=== PATIENT | male | born 1980 | race Two or more races ===

== ENCOUNTER 2017-05-11 16:12 | Emergency (ER) | payer OTHER ==
[2017-05-11 16:25] VITALS: BP 145/93; PULSE 87; TEMP 97.8; BMI 32.5
--- NOTE | 2017-05-11 16:26 | PDOC ---
Rapid Medical Evaluation Chief Complaint: Injury Time Seen by Provider: 05/11/17 16:20 Medical Evaluation: Allergies Allergy/AdvReac Type Severity Reaction Status Date / Time No Known Allergies Allergy Verified 02/18/15 08:59 05/11/17 16:21 The patient presents with a chief complaint of: [Was hit on the head with a piece of sheet rock, that fell 16 feet. It was a 5 inch thick sheet rock. Was leaning on the floor working on his hands and knees at the time. + dizziness, No LOC, NO vomiting, left occipital and left pariental pain, erythema and edema noted. ] I have performed a brief in-person evaluation of this patient. Pertinent physical exam findings: vss, [erythema and edema noted to the scalp left parietal and occipital area. ] I have ordered the following: [Head CT, C-spine CT] The patient will proceed to the ED for further evaluation. Discharge Disposition - Diagnosis Head injury - Referrals - Patient Instructions - Post Discharge Activity
--- NOTE | 2017-05-11 16:42 | PDOC ---
Attending Attestation - HPI HPI: 05/11/17 18:05 The patient is a 37-year-old male with a significant past medical history of diabetes (on Metformin), who presents to the emergency department with headache and neck pain. 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 He complains of pain at the middle of his neck that radiates to the left lateral neck, and a bump on his head. He states he was able to ambulate afterwards. He denies any loss of consciousness, dizziness, visual changes, or change in sensation or strength. The patient denies chest pain or shortness of breath. The patient denies fever, chills, nausea, vomit, diarrhea, or urinary changes. - Physicial Exam PE: 05/11/17 18:07 Vitals: Triage Vital signs reviewed General Appearance: no acute distress, well nourished well developed, Head: (+) Minor hematoma to occiput. Normocephalic Eyes: Pupils equal reactive round, extraocular movement intact Neck: Supple;No Nuchal rigidity Cardiac: Regular rate and rhythm, no murmurs, no rubs, no gallops, Lungs: Clear to auscultation bilateral, good air movement bilaterally, Abdomen: Soft, nondistended, normal bowel sounds, nontender to palpation Extremities: Full range of motion to all extremities, no cyanosis, clubbing, or edema Skin: Warm and dry, no rashes, no petechiae Neuro: AOX3; Cranial Nerves 2-12 grossly c intact, Strength intact to all extremities, Sensation intact to all extremities, gait normal Psych: normal mood, normal affect - Medical Decision Making 05/11/17 18:[address] IMPRESSION: No acute intracranial hemorrhage, mass effects, or hydrocephalus. No calvarial fracture. CERVICAL SPINE CT W/O CONTRAST IMPRESSION: No evidence of acute fracture or subluxation in the cervical spine. <Mara Eng - Last Filed: 05/11/17 18:22> - Resident Resident Name: Jose Elias Lugo - ED Attending Attestation I have performed the following: I have examined & evaluated the patient, The case was reviewed & discussed with the resident, I agree w/resident's findings & plan, Exceptions are as noted - Medical Decision Making Minor head injury however given mechanism CT had neck ordered No acute findings Given the patient has mild headache head injury instruction rhythm discussed with patient including to return to ED for vomiting change in mental status He was instructed not to return to work until the signs and symptoms of his concussion have resolved he was also provided with neurology follow-up with signs and symptoms of concussion do not strict resolve completely within 1 week <Jono Stallings - Last Filed: 05/11/17 18:45>
[2017-05-11] MEDS ORDERED: ACETAMINOPHEN 325 MG TABLET (FP) PO ONE (16:50)
--- NOTE | 2017-05-11 16:50 | PDOC ---
History of Present Illness - General Chief Complaint: Injury Stated Complaint: HEADACHE Time Seen by Provider: 05/11/17 16:20 History Source: Patient Exam Limitations: No Limitations - History of Present Illness Initial Comments: 05/11/17 16:45 Patient is a 37M with history of NIDDM (on metformin) here today complaining of head and neck pain after sheet rock fell on him at work a few hours before presentation. Patient denies loss of consciousness, nausea, vomiting, memory loss. The sheet rock fell from about 15 feet. Patient states he has pain over the left side of his head and neck. He denies chest pain, shortness of breath. He states that he was able to walk immediately after the accident. Denies any focal weakness. Denies intoxication. Past History - Past Medical History Allergies/Adverse Reactions: Allergies Allergy/AdvReac Type Severity Reaction Status Date / Time No Known Allergies Allergy Verified 02/18/15 08:59 Home Medications: Ambulatory Orders NK [No Known Home Medication] 02/18/15 Anemia: No Asthma: No Cancer: No Cardiac Disorders: No CVA: No COPD: No CHF: No DVT: No Dementia: No Diabetes: No GI Disorders: No Disorders: No HTN: No Hypercholesterolemia: No Liver Disease: No Seizures: No Thyroid Disease: No - Immunization History Immunization Up to Date: Yes - Suicide/Smoking/Psychosocial Hx Smoking History: Never smoked Have you smoked in the past 12 months: No Information on smoking cessation initiated: No Hx Alcohol Use: No Drug/Substance Use Hx: No Substance Use Type: None Hx Substance Use Treatment: No Review of Systems - Review of Systems Comments:: 05/11/17 16:51 GENERAL/CONSTITUTIONAL: No fever or chills. No weakness. HEAD, EYES, EARS, NOSE AND THROAT: No change in vision. No sore throat. CARDIOVASCULAR: No chest pain or shortness of breath RESPIRATORY: No cough, wheezing, or hemoptysis. GASTROINTESTINAL: No nausea, vomiting, diarrhea or constipation. GENITOURINARY: No dysuria, frequency, or change in urination. MUSCULOSKELETAL: No joint or muscle swelling or pain. Positive for neck pain. No back pain. SKIN: No rash NEUROLOGIC: Positive for headache. Negative vertigo, loss of consciousness, or change in strength/sensation. HEMATOLOGIC/LYMPHATIC: No anemia, easy bleeding, or history of blood clots. ALLERGIC/IMMUNOLOGIC: No hives or skin allergy. *Physical Exam - Vital Signs Last Vital Signs Temp Pulse Resp BP Pulse Ox 97.8 F 87 16 145/93 96 05/11/17 16:18 05/11/17 16:18 05/11/17 16:18 05/11/17 16:18 05/11/17 16:18 - Physical Exam Comments: 05/11/17 16:52 GENERAL: Awake, alert, and fully oriented, in no acute distress HEAD: 2x2cm area of ecchymosis on posterior aspect of head, no garcia sign, no racoon eyes, small abrasion on lateral aspect of head EYES: PERRLA, EOMI, sclera anicteric, conjunctiva clear ENT: Auricles normal inspection, hearing grossly normal, nares patent, oropharynx clear without exudates. Moist mucosa NECK: Normal ROM, supple, positive for midline tenderness LUNGS: No distress, speaks full sentences, clear to auscultation bilaterally HEART: Regular rate and rhythm, normal S1 and S2, no murmurs, rubs or gallops, peripheral pulses normal and equal bilaterally. ABDOMEN: Soft, nontender, normoactive bowel sounds. No guarding, no rebound. No masses EXTREMITIES: Normal inspection, Normal range of motion, no edema. No clubbing or cyanosis. NEUROLOGICAL: Cranial nerves II through XII grossly intact. Normal speech, normal gait, no focal sensorimotor deficits SKIN: Warm, Dry, normal turgor, no rashes or lesions noted. Medical Decision Making - Medical Decision Making 05/11/17 16:53 37M with history of NIDDM here today with head and neck pain after sheet rock fell on patient. Vital signs stable and normal. Exam shows small amount of trauma to head, neuro exam normal, midline tenderness in neck. Will evaluate with cervical spine and head ct. Believe patient is low risk. No other complaints to indicate further trauma workup. 05/11/17 18:23 CT head shows no acute injury, CT neck cleared. Patient's pain has improved with tylenol. Neuro exam intact. Return precautions given. Will discharge. *DC/Admit/Observation/Transfer Diagnosis at time of Disposition: Head injury - Discharge Dispostion Disposition: HOME Condition at time of disposition: Good - Referrals - Patient Instructions Printed Discharge Instructions: DI for Closed Head Injury Additional Instructions: Please return if you have any new, worsening or concerning symptoms. Please follow up with your primary care physician in the next week. Print Language: MARTINIQUAIS - Post Discharge Activity Forms/Work/School Notes: Back to Work
[2017-05-11] MEDS ORDERED: ACETAMINOPHEN 325 MG TABLET (FP) ONE (16:59)
== END 2017-05-11 18:51 | disposition home or self-care (01) ==
LOC: JER 16:12
DX: S09.90XA Unspecified injury of head, initial encounter (principal); W20.8XXA Other cause of strike by thrown, projected or falling object, initial encounter; Y93.89 Activity, other specified; Y92.89 Other specified places as the place of occurrence of the external cause; Y99.0 Civilian activity done for income or pay
CPT/HCPCS: 70450-TC; 72125-TC; 99281-25

== ENCOUNTER 2017-05-25 10:53 | Emergency (ER) | payer OTHER ==
[2017-05-25 11:06] VITALS: BP 118/82; PULSE 104; TEMP 97.7; BMI 32.5
--- NOTE | 2017-05-25 11:18 | PDOC ---
Attending Attestation - HPI HPI: 05/25/17 11:36 37 M with a significant past medical history of NIDDM (on Metformin), who presents to the emergency department with left-sided chest pain since 7am today. Patient reports of sudden onset left upper quadrant pain this morning that began to radiate to his left chest. He states the pain is reproducible to touch. Patient also complains of diaphoresis at onset of pain this morning, and notes he has some difficulty breathing currently. Denies any family Hx of heart disease. He notes occasional ETOH use. Pt denies COATS and dizziness. Pt denies F/C, n/v/d. Pt denies dysuria, frequency, urgency and hematuria. <Mara Eng - Last Filed: 05/25/17 11:36> - Resident Resident Name: Nedra Gonzalez - ED Attending Attestation I have performed the following: I have examined & evaluated the patient, The case was reviewed & discussed with the resident, I agree w/resident's findings & plan, Exceptions are as noted - Physicial Exam PE: GENERAL: Awake, alert, and fully oriented. Appears uncomfortable. Appears ill. HEAD: No signs of trauma EYES: PERRLA, EOMI, sclera anicteric, conjunctiva clear ENT: Auricles normal inspection, hearing grossly normal, nares patent, oropharynx clear without exudates. Dry mucosa NECK: Normal ROM, supple, no lymphadenopathy, JVD, or masses LUNGS: Breath sounds equal, clear to auscultation bilaterally. No wheezes, and no crackles. +Tenderness to L lower rib margin. HEART: Regular rate and rhythm, normal S1 and S2, no murmurs, rubs or gallops ABDOMEN: Soft, diffusely tender, normoactive bowel sounds. No guarding, no rebound. No masses EXTREMITIES: Normal range of motion, no edema. No clubbing or cyanosis. No cords, erythema, or tenderness NEUROLOGICAL: Cranial nerves II through XII grossly intact. Normal speech. Motor and sensation intact. SKIN: Warm, Dry, normal turgor, no rashes or lesions noted. - Medical Decision Making 05/25/17 11:34 Patient appears uncomfortable, in obvious pain. Concern for poss dissection vs pancreatitis, SC. Will obtain labs, poss CTA. <Jaye Burks - Last Filed: 05/25/17 11:49>
[2017-05-25] MEDS ORDERED: ASPIRIN 81 MG CHEWABLE TABLETS PO ONE (11:22)
--- NOTE | 2017-05-25 11:22 | PDOC ---
History of Present Illness - General Chief Complaint: Chest Pain Stated Complaint: chest pain, vomiting, sob Time Seen by Provider: 05/25/17 11:15 - History of Present Illness Initial Comments: 37 year male with PMH of NIDDM presenting with sudden onset left upper quadrant abdominal pain that radiated to his left upper chest along with some respiratory difficulty.The pain was sudden onset 6/10 and high as a 9/10, non- pleuritic, non-exertional, but tender to touch across his upper left chest and left abdomen. Denies trauma to that area. Denies nausea, vomiting, diarrhea, constipation, syncope, or cough. 05/25/17 14:13 Past History - Past Medical History Allergies/Adverse Reactions: Allergies Allergy/AdvReac Type Severity Reaction Status Date / Time No Known Allergies Allergy Verified 05/25/17 11:06 Home Medications: Ambulatory Orders NK [No Known Home Medication] 02/18/15 Anemia: No Asthma: No Cancer: No Cardiac Disorders: No CVA: No COPD: No CHF: No DVT: No Dementia: No Diabetes: Yes GI Disorders: No Disorders: No HTN: No Hypercholesterolemia: No Liver Disease: No Seizures: No Thyroid Disease: No - Immunization History Immunization Up to Date: Yes - Suicide/Smoking/Psychosocial Hx Smoking History: Never smoked Have you smoked in the past 12 months: No Information on smoking cessation initiated: No Hx Alcohol Use: Yes (occasional) Drug/Substance Use Hx: No Substance Use Type: None Hx Substance Use Treatment: No Review of Systems - Review of Systems Constitutional: No: Chills, Diaphoresis, Fever HEENTM: No: Blurred Vision, Double Vision Respiratory: No: Cough, Orthopnea, Shortness of Breath Cardiac (ROS): Yes: Chest Pain. No: Irregular Heart Rate, Syncope ABD/GI: No: Nausea, Poor Appetite, Vomiting : No: Burning, Dysuria, Discharge Integumentary: No: Bruising *Physical Exam - Vital Signs Last Vital Signs Temp Pulse Resp BP Pulse Ox 97.7 F 104 H 18 118/82 98 05/25/17 11:04 05/25/17 11:04 05/25/17 11:04 05/25/17 11:04 05/25/17 11:04 - Physical Exam General Appearance: Yes: Nourished, Appropriately Dressed, Apparent Distress, Mild Distress HEENT: positive: EOMI, GIDEON, Normal ENT Inspection, Normal Voice Neck: positive: Trachea midline, Normal Thyroid, Supple. negative: Tender, Rigid Respiratory/Chest: positive: Chest Tender (Left sided chest tenderness to palpation along inferior portion of anterior thoracic ), Lungs Clear, Normal Breath Sounds. negative: Respiratory Distress, Accessory Muscle Use Cardiovascular: positive: Regular Rhythm, Regular Rate Gastrointestinal/Abdominal: positive: Normal Bowel Sounds, Tender (Left upper quadrant tenderness), Flat, Soft Musculoskeletal: positive: Normal Inspection, Decreased Range of Motion Extremity: positive: Normal Capillary Refill, Normal Inspection, Normal Range of Motion. negative: Tender Integumentary: positive: Normal Color, Dry, Warm Neurologic: positive: Fully Oriented, Alert, Normal Mood/Affect, Normal Response , Motor Strength / ED Treatment Course - LABORATORY CBC & Chemistry Diagram: 05/25/17 12:00 05/25/17 12:00 Medical Decision Making - Medical Decision Making Unclear etiology of abdominal but CTA chest/abd/pelvis negative for PE or other pathology. Blood glucose was elevated to 400s with a repeat of 280 and a lactate that downtrended from 3 to 1.6 with improved abdominal pain. Pain better with IV pain meds. and fluids. 05/25/17 17:15 EKGs originally demonstrated slightly elevated t waves in the anterior leads but troponins negative x2 and the EKG changes somehwat resolved by the end of his stay. Given his low risk factors, non specific EKG, negative troponins, and lack of typical [place] features, will discharge this patient with cards follow up with Dr. Freitas and return precautions. 05/25/17 18:47 *DC/Admit/Observation/Transfer Diagnosis at time of Disposition: Abdominal pain Qualifiers: Abdominal location: left upper quadrant Qualified Code(s): R10.12 - Left upper quadrant pain - Discharge Dispostion Disposition: HOME Condition at time of disposition: Improved Admit: No - Referrals Referrals: Micah Hagan MD [Staff Physician] - - Patient Instructions Printed Discharge Instructions: DI for Abdominal Pain-Adult Additional Instructions: Mcnally EKG fue un poco diferente que un EKG normal. Tu TC fue normal. Necesitamos que olman un seguimiento con el cardilogo en aliyah documento para asegurarse de que todo est wm con mcnally corazn. Utilice tylenol y advil para el dolor. Pelase regresa al departamento de emergencia si tiene sntomas nuevos o de empeoramiento. Print Language: SAMI - Post Discharge Activity
[2017-05-25] MEDS ORDERED: morphine CARPU-JECT 4 MG/1 ML DISP.SYRIN IVPUSH ONE (11:32)
[2017-05-25] MEDS ORDERED: SODIUM CHLORIDE 1,000 ML IV STA ×2 (11:32→13:15)
[2017-05-25] MEDS ORDERED: morphine SULFATE 4 MG/ML VIAL ONE (11:36)
[2017-05-25 12:09] LABS: BASO % 0.5 % (0-2.0); HEMATOCRIT 50.1 % (35.4-49); HEMOGLOBIN 17.1 GM/dL (11.7-16.9); LYMPH % 12.4 % (8-40); MCH 29.5 pg (25.7-33.7); MCHC 34.2 g/dl (32.0-35.9); MEAN CELL VOLUME 86.3 fl (80-96); MONO % 5.4 % (3.8-10.2); NEUT % 80.7 % (42.8-82.8); PLATELET COUNT 197 K/MM3 (134-434); RDW 13.4 % (11.9-15.9); WHITE BLOOD COUNT 6.1 K/mm3 (4.0-10.0)
[2017-05-25 12:35] LABS: ALBUMIN 4.1 g/dl (3.4-5.0); ANION GAP 15 (8-16); BILIRUBIN,TOTAL 1.4 mg/dL (0.2-1.0); BLOOD UREA NITROGEN 16 mg/dL (7-18); CALCIUM 9.6 mg/dL (8.5-10.1); CHLORIDE 96 mmol/L (98-107); CO2 25 mmol/L (21-32); CREATININE 1.2 mg/dL (0.7-1.3); LIPASE 197 U/L (73-393); POTASSIUM 4.2 mmol/L (3.5-5.1); SGOT/AST 21 U/L (15-37); SGPT/ALT 37 U/L (12-78); SODIUM 136 mmol/L (136-145); TOT PROT 7.4 g/dl (6.4-8.2)
[2017-05-25 12:36] LABS: N-TERMINAL BNP 149.01 pg/ml (5-125)
[2017-05-25 12:38] LABS: ALK PHOS 165 U/L (45-117)
[2017-05-25 12:40] LABS: INR 0.98 (0.82-1.09); PROTHROMBIN TIME (PATIENT) 11.1 SEC (9.98-11.88)
[2017-05-25 12:43] LABS: GLUCOSE,RANDOM 483 mg/dL (74-106)
[2017-05-25] MEDS ORDERED: INSULIN REGULAR HUMAN 100 UNITS/ML *VIAL SQ ONE (13:15)
[2017-05-25] MEDS ORDERED: INSULIN REGULAR HUMAN 100 UNITS/ML *VIAL ONE (13:23)
[2017-05-25] MEDS ORDERED: FUROSEMIDE 40 MG/4 ML INJECTABLE VIAL ONE (13:43)
--- NOTE | 2017-05-25 16:28 | EKG ---
Test Reason : Blood Pressure : / mmHG Vent. Rate : 096 BPM Atrial Rate : 096 BPM P-R Int : 152 ms QRS Dur : 098 ms QT Int : 338 ms P-R-T Axes : 068 090 063 degrees QTc Int : 427 ms NORMAL SINUS RHYTHM RIGHTWARD AXIS BORDERLINE ECG NO PREVIOUS ECGS AVAILABLE Confirmed by Hansel Barton ([id number]) on 05/25/2017 4:28:18 PM Referred By: Confirmed By:Hansel Barton
--- NOTE | 2017-05-25 16:29 | EKG ---
Test Reason : Blood Pressure : / mmHG Vent. Rate : 097 BPM Atrial Rate : 097 BPM P-R Int : 150 ms QRS Dur : 096 ms QT Int : 338 ms P-R-T Axes : 062 080 055 degrees QTc Int : 429 ms NORMAL SINUS RHYTHM EARLY REPOLARIZATION NORMAL ECG NO PREVIOUS ECGS AVAILABLE Confirmed by Hansel Barton ([id number]) on 05/25/2017 4:28:30 PM Referred By: Confirmed By:Hansel Barton
[2017-05-25 17:46] LABS: URINE APPEARANCE CLEAR; URINE BILIRUBIN NEGATIVE (NEGATIVE); URINE BLOOD NEGATIVE (NEGATIVE); URINE COLOR LTYELLOW; URINE GLUCOSE (UA) 3+ (NEGATIVE); URINE KETONE NEGATIVE (NEGATIVE); URINE LEUK ESTERASE NEGATIVE (NEGATIVE); URINE NITRITE NEGATIVE (NEGATIVE); URINE PROTEIN NEGATIVE (NEGATIVE); URINE UROBILINOGEN NEGATIVE mg/dL (0.2-1.0)
--- NOTE | 2017-05-26 09:56 | EKG ---
Test Reason : Blood Pressure : / mmHG Vent. Rate : 072 BPM Atrial Rate : 072 BPM P-R Int : 162 ms QRS Dur : 104 ms QT Int : 386 ms P-R-T Axes : 050 058 051 degrees QTc Int : 422 ms NORMAL SINUS RHYTHM ST ELEVATION, CONSIDER EARLY REPOLARIZATION, PERICARDITIS, OR INJURY ABNORMAL ECG WHEN COMPARED WITH ECG OF 25-MAY-2017 11:50, NO SIGNIFICANT CHANGE WAS FOUND Confirmed by TORITO CHOU, JONNATHAN ([id number]) on 05/26/2017 9:56:33 AM Referred By: Confirmed By:JONNATHAN UGARTE MD
== END 2017-05-25 19:10 | disposition home or self-care (01) ==
LOC: JER 10:53
PROC: 3E0337Z Introduction of Electrolytic and Water Balance Substance into Peripheral Vein, Percutaneous Approach (ICD-10-PCS; principal; 2017-05-25)
PROC: 3E033NZ Introduction of Analgesics, Hypnotics, Sedatives into Peripheral Vein, Percutaneous Approach (ICD-10-PCS; 2017-05-25)
PROC: 3E013VG Introduction of Insulin into Subcutaneous Tissue, Percutaneous Approach (ICD-10-PCS; 2017-05-25)
DX: R10.12 Left upper quadrant pain (principal); E11.9 Type 2 diabetes mellitus without complications; Z79.84 Long term (current) use of oral hypoglycemic drugs
CPT/HCPCS: 36415; 71045-TC-FY; 71275-TC; 74174-TC; 80053; 81003; 82550; 82962; 83605; 83690; 83735; 83880; 84484; 85025; 85379; 85610; 86850; 86900; 86901; 93005; 93010; 99284-25; J7030

== ENCOUNTER 2019-03-07 12:31 | Emergency (ER) | payer SELFPAY ==
[2019-03-07 12:43] VITALS: BP 117/70; PULSE 92; TEMP 98; BMI 29.6
[2019-03-07] MEDS ORDERED: ONDANSETRON *ODT* 4 MG TABLET SL ONE (13:29)
--- NOTE | 2019-03-07 13:31 | PDOC ---
History of Present Illness - General Chief Complaint: Cold Symptoms Stated Complaint: CHRONIC COUGHING Time Seen by Provider: 03/07/19 13:26 - History of Present Illness Initial Comments: 03/07/19 13:30 38-year-old male without comorbidities presents for flulike symptoms x1 day positive flu contact at home Past History - Past Medical History Allergies/Adverse Reactions: Allergies Allergy/AdvReac Type Severity Reaction Status Date / Time No Known Allergies Allergy Verified 05/25/17 11:06 Home Medications: Ambulatory Orders Oseltamivir Phosphate [Tamiflu] 75 mg PO BID #10 capsule 03/07/19 Anemia: No Asthma: No Cancer: No Cardiac Disorders: No CVA: No COPD: No CHF: No DVT: No Dementia: No Diabetes: Yes GI Disorders: No Disorders: No HTN: No Hypercholesterolemia: No Liver Disease: No Seizures: No Thyroid Disease: No - Immunization History Immunization Up to Date: Yes - Psycho Social/Smoking Cessation Hx Smoking History: Never smoked Have you smoked in the past 12 months: No Information on smoking cessation initiated: No Hx Alcohol Use: No Drug/Substance Use Hx: No Substance Use Type: None Hx Substance Use Treatment: No Review of Systems - Review of Systems Constitutional: Yes: Chills, Fever, Malaise, Night Sweats HEENTM: Yes: Nose Congestion Respiratory: Yes: Cough ABD/GI: Yes: Nausea, Vomiting *Physical Exam - Vital Signs Last Vital Signs Temp Pulse Resp BP Pulse Ox 98.0 F 92 H 18 117/70 98 03/07/19 12:40 03/07/19 12:40 03/07/19 12:40 03/07/19 12:40 03/07/19 12:40 - Physical Exam 03/07/19 13:30 GENERAL: The patient is awake, alert, and fully oriented, in no acute distress. HEAD: Normal with no signs of trauma. EYES: sclera anicteric, conjunctiva clear. ENT: Ears normal tympanic membranes normal oropharynx clear uvula midline NECK: Normal range of motion LUNGS: Breath sounds equal, clear to auscultation bilaterally. No wheezes, and no crackles. HEART: S1 and S2 without murmur, rub or gallop. ABDOMEN: Soft, nontender, normoactive bowel sounds. No guarding, no rebound. No masses. EXTREMITIES: Normal range of motion, no edema. No clubbing or cyanosis. No cords, erythema, or tenderness. NEUROLOGICAL: Cranial nerves II through XII grossly intact. Normal speech, normal gait. PSYCH: Normal mood, normal affect. SKIN: Warm, Dry, normal turgor, no rashes or lesions noted. Medical Decision Making - Medical Decision Making 03/07/19 13:30 Tamiflu for influenza positive flu contact at home Discharge - Discharge Information Problems reviewed: Yes Clinical Impression/Diagnosis: Influenza Condition: Stable Disposition: HOME - Admission No - Follow up/Referral Referrals: Merry Trejo MD [Staff Physician] - - Patient Discharge Instructions Additional Instructions: Please take the Tamiflu as directed. Return to the emergency room for worsening symptoms. Without fail follow-up with your primary care physician in 2 to 3 days for further evaluation and treatment options. Tylenol and Motrin as directed for fevers. - Post Discharge Activity
[2019-03-07] MEDS ORDERED: ONDANSETRON *ODT* 4 MG TABLET ONE ×2 (13:34→13:35)
== END 2019-03-07 13:38 | disposition home or self-care (01) ==
LOC: JERFT 12:31
DX: J11.1 Influenza due to unidentified influenza virus with other respiratory manifestations (principal); E11.9 Type 2 diabetes mellitus without complications
CPT/HCPCS: 99281-25; Q0162

== ENCOUNTER 2020-10-09 05:35 | Emergency (ER) | payer SELFPAY ==
[2020-10-09 06:00] VITALS: BMI 29.2
[2020-10-09] MEDS ORDERED: FAMOTIDINE 20 MG/50 ML IVPB 20 MG/50 ML MG IVPB ONE ×2 (06:25→06:27)
[2020-10-09 06:59] LABS: HEMATOCRIT 44.2 % (35.4-49); HEMOGLOBIN 15.8 GM/dL (11.7-16.9); MCHC 35.7 g/dl (32.0-35.9); MEAN CELL VOLUME 86.8 fl (80-96); MEAN PLT VOLUME 8.7 fl (7.5-11.1); PLATELET COUNT 164 10^3/uL (134-434); RBC 5.09 M/mm3 (4.00-5.60); RDW 12.9 % (11.9-15.9); WHITE BLOOD COUNT 4.9 K/mm3 (4.0-10.0)
[2020-10-09 07:16] LABS: INR 0.92 (0.83-1.09); PROTHROMBIN TIME (PATIENT) 11.4 SEC (9.7-13.0)
[2020-10-09 07:19] LABS: ACTIVATED PTT 30.5 SECONDS (25.2-36.5)
[2020-10-09 07:23] LABS: CHLORIDE 101 mmol/L (98-107); SODIUM 136 mmol/L (136-145)
[2020-10-09 07:25] LABS: ALBUMIN 3.7 g/dl (3.4-5.0); ANION GAP 9 MMOL/L (8-16); CALCIUM 8.8 mg/dL (8.5-10.1); CO2 26 mmol/L (21-32)
[2020-10-09 07:26] LABS: BLOOD UREA NITROGEN 13.9 mg/dL (7-18); GLUCOSE,RANDOM 315 mg/dL (74-106)
[2020-10-09 07:28] LABS: SGPT/ALT 57 U/L (13-61)
[2020-10-09 07:29] LABS: CREATININE 0.8 mg/dL (0.55-1.3); SGOT/AST 24 U/L (15-37)
[2020-10-09 07:30] LABS: BILIRUBIN,TOTAL 0.8 mg/dL (0.2-1); TOT PROT 6.8 g/dl (6.4-8.2)
[2020-10-09 07:31] LABS: ALK PHOS 127 U/L (45-117)
[2020-10-09] MEDS ORDERED: LACTATED RINGERS SOLUTION 1,000 ML/1,000 ML INFUS.BAG IV STA ×2 (07:38→10:08)
[2020-10-09] MEDS ORDERED: METOCLOPRAMIDE HCL INJECTION 10 MG/2 ML VIAL IVPUSH ONE (07:38)
[2020-10-09] MEDS ORDERED: morphine CARPU-JECT 4 MG/1 ML DISP.SYRIN IVPUSH ONE (07:39)
[2020-10-09 07:55] LABS: MAGNESIUM 1.8 mg/dL (1.8-2.4)
[2020-10-09 07:56] LABS: LIPASE 147 U/L (73-393)
[2020-10-09] MEDS ORDERED: morphine SULFATE 4 MG/ML VIAL ONE (08:04)
[2020-10-09] MEDS ORDERED: METOCLOPRAMIDE HCL INJECTION 10 MG/2 ML VIAL ONE (08:05)
[2020-10-09] MEDS ORDERED: THIAMINE HCL 200 MG/2 ML VIAL IVPB ONE (08:22)
[2020-10-09] MEDS ORDERED: THIAMINE HCL 200 MG/2 ML VIAL ONE (09:04)
[2020-10-09 12:23] VITALS: BP 119/71; PULSE 86; TEMP 98
== END 2020-10-09 12:45 | disposition home or self-care (01) ==
LOC: JER 05:35
PROC: 3E033GC Introduction of Other Therapeutic Substance into Peripheral Vein, Percutaneous Approach (ICD-10-PCS; principal; 2020-10-09)
PROC: 3E033GC Introduction of Other Therapeutic Substance into Peripheral Vein, Percutaneous Approach (ICD-10-PCS; 2020-10-09)
PROC: 3E033NZ Introduction of Analgesics, Hypnotics, Sedatives into Peripheral Vein, Percutaneous Approach (ICD-10-PCS; 2020-10-09)
PROC: 3E033GC Introduction of Other Therapeutic Substance into Peripheral Vein, Percutaneous Approach (ICD-10-PCS; 2020-10-09)
PROC: 3E0337Z Introduction of Electrolytic and Water Balance Substance into Peripheral Vein, Percutaneous Approach (ICD-10-PCS; 2020-10-09)
PROC: 3E0337Z Introduction of Electrolytic and Water Balance Substance into Peripheral Vein, Percutaneous Approach (ICD-10-PCS; 2020-10-09)
DX: R10.13 Epigastric pain (principal); R11.2 Nausea with vomiting, unspecified
CPT/HCPCS: 36415; 71045-TC-FY; 74177-TC; 80053; 83690; 83735; 84484; 85027; 85610; 85730; 93005; 93010; 99285-25; G0480; Q9967

== ENCOUNTER 2021-06-21 14:45 | Emergency (ER) | payer OTHER ==
[2021-06-21 14:56] VITALS: BP 108/70; PULSE 91; TEMP 97.9; BMI 32.5
[2021-06-21] MEDS ORDERED: KETOROLAC TROMETHAMINE 30 MG/1 ML VIAL IM ONE (15:43)
[2021-06-21] MEDS ORDERED: LIDOCAINE 5% TOPICAL PATCH TP ONE (15:44)
[2021-06-21] MEDS ORDERED: LIDOCAINE 5% TOPICAL PATCH ONE (15:48)
[2021-06-21] MEDS ORDERED: KETOROLAC TROMETHAMINE 30 MG/1 ML VIAL ONE (15:48)
[2021-06-21] MEDS ORDERED: LIDOCAINE PATCH REMOVAL MC SCH (22:00)
== END 2021-06-21 17:34 | disposition home or self-care (01) ==
LOC: JERFT 14:45
PROC: 3E0233Z Introduction of Anti-inflammatory into Muscle, Percutaneous Approach (ICD-10-PCS; principal; 2021-06-21)
DX: M54.50 Low back pain, unspecified (principal)
CPT/HCPCS: 72100-TC-FY; 99284-25

== ENCOUNTER 2022-05-27 13:18 | Emergency (ER) | payer OTHER ==
[2022-05-27 13:35] VITALS: RESP 20; BMI 33.0
[2022-05-27] MEDS ORDERED: SODIUM CHLORIDE 1,000 ML IV STA (13:40)
[2022-05-27] MEDS ORDERED: ACETAMINOPHEN 1000 MG/100 ML BAG IVPB ONE (14:00)
[2022-05-27] MEDS ORDERED: ACETAMINOPHEN INJECTION 100 ML IVPB ONE (14:38)
[2022-05-27 14:40] LABS: BASO % 0.3 % (0-2.0); EOS % 0.5 % (0-4.5); HEMATOCRIT 44.6 % (35.4-49); HEMOGLOBIN 15.4 GM/dL (11.7-16.9); LYMPH % 9.4 % (8-40); MCHC 34.6 g/dl (32.0-35.9); MEAN CELL VOLUME 86.7 fl (80-96); MEAN PLT VOLUME 8.4 fl (7.5-11.1); MONO % 4.5 % (3.8-10.2); NEUT % 85.3 % (42.8-82.8); PLATELET COUNT 205 10^3/uL (134-434); RBC 5.14 M/mm3 (4.00-5.60); RDW 12.9 % (11.9-15.9); WHITE BLOOD COUNT 6.8 K/mm3 (4.0-10.0)
[2022-05-27 14:54] LABS: INR 1.05 (0.83-1.09); PROTHROMBIN TIME (PATIENT) 12.2 SEC (9.7-13.0)
[2022-05-27 14:57] LABS: ACTIVATED PTT 30.2 SECONDS (25.2-36.5)
[2022-05-27 15:08] LABS: ALBUMIN 3.7 g/dl (3.4-5.0); BLOOD UREA NITROGEN 17.2 mg/dL (7-18); CALCIUM 9.1 mg/dL (8.5-10.1)
[2022-05-27 15:09] LABS: MAGNESIUM 1.7 mg/dL (1.8-2.4)
[2022-05-27 15:13] LABS: BILIRUBIN,TOTAL 1.2 mg/dL (0.2-1)
[2022-05-27 15:16] LABS: N-TERMINAL BNP 301.2 pg/ml (5-125)
[2022-05-27 18:50] VITALS: BP 108/58; PULSE 81; TEMP 98.1
== END 2022-05-27 23:01 | disposition home or self-care (01) ==
LOC: JER 13:18
PROC: 3E033NZ Introduction of Analgesics, Hypnotics, Sedatives into Peripheral Vein, Percutaneous Approach (ICD-10-PCS; principal; 2022-05-27)
PROC: 3E0337Z Introduction of Electrolytic and Water Balance Substance into Peripheral Vein, Percutaneous Approach (ICD-10-PCS; 2022-05-27)
DX: R07.2 Precordial pain (principal); R06.02 Shortness of breath; R10.12 Left upper quadrant pain; R10.32 Left lower quadrant pain; R11.10 Vomiting, unspecified; R19.7 Diarrhea, unspecified; Z20.822 Contact with and (suspected) exposure to COVID-19
CPT/HCPCS: 0241U-QW; 36415; 71275-TC; 74174-TC; 80053; 83690; 83735; 83880; 84484; 85025; 85610; 85730; 86850; 86900; 86901; 93005; 93010; 99285-25; Q9967

== ENCOUNTER 2023-05-14 11:47 | Emergency (ER) | payer OTHER ==
[2023-05-14 11:54] VITALS: PULSE 116; RESP 19; TEMP 98; BMI 32.1
[2023-05-14] MEDS ORDERED: morphine SULFATE 4 MG/ML VIAL ONE (12:13)
[2023-05-14] MEDS: morphine CARPU-JECT 4 MG/1 ML DISP.SYRIN IVPUSH ONE (12:22)
[2023-05-14 12:53] LABS: INR 1.01 (0.83-1.09); PROTHROMBIN TIME (PATIENT) 11.7 SEC (9.7-13.0)
[2023-05-14 12:55] LABS: ACTIVATED PTT 29.9 SECONDS (25.2-36.5)
[2023-05-14] MEDS ORDERED: CLOPIDOGREL BISULFATE 300 MG TABLET ONE (12:57)
[2023-05-14] MEDS ORDERED: ASPIRIN 325 MG TABLET ONE (12:58)
[2023-05-14 12:59] LABS: POTASSIUM 4.3 mmol/L (3.5-5.1)
[2023-05-14] MEDS: CLOPIDOGREL BISULFATE 300 MG TABLET PO ONE (13:00)
[2023-05-14] MEDS: ASPIRIN 325 MG TABLET PO ONE (13:00)
[2023-05-14 13:02] LABS: CALCIUM 9.6 mg/dL (8.5-10.1)
[2023-05-14 13:03] LABS: ALBUMIN 3.8 g/dl (3.4-5.0); BLOOD UREA NITROGEN 11.5 mg/dL (7-18)
[2023-05-14] MEDS ORDERED: METOPROLOL TARTRATE 5 MG/5 ML VIAL ONE (13:05)
[2023-05-14 13:06] LABS: CREATININE 0.9 mg/dL (0.55-1.3)
[2023-05-14 13:08] LABS: BILIRUBIN,TOTAL 0.9 mg/dL (0.2-1); TOT PROT 7.1 g/dl (6.4-8.2)
[2023-05-14] MEDS: METOPROLOL TARTRATE 5 MG/5 ML VIAL IVPUSH ONE (13:10)
[2023-05-14 13:11] VITALS: BP 106/75
[2023-05-14] MEDS ORDERED: HEPARIN NA (PORCINE) 5,000 UNITS/ML 1ML VIAL ONE (13:14)
[2023-05-14] MEDS: HEPARIN NA (PORCINE) 5,000 UNITS/ML 1ML VIAL IVPUSH ONE (13:18)
[2023-05-14] MEDS: INSULIN REGULAR HUMAN 100 UNITS/ML *VIAL SQ ONE (13:24)
[2023-05-14 13:29] LABS: BASO % 0.7 % (0-2.0); EOS % 2.3 % (0-4.5); HEMATOCRIT 46.3 % (35.4-49); HEMOGLOBIN 16.3 GM/dL (11.7-16.9); LYMPH % 24.5 % (8-40); MCH 30.1 pg (25.7-33.7); MCHC 35.3 g/dl (32.0-35.9); MEAN CELL VOLUME 85.2 fl (80-96); MEAN PLT VOLUME 8.4 fl (7.5-11.1); MONO % 7.4 % (3.8-10.2); NEUT % 65.1 % (42.8-82.8); PLATELET COUNT 196 10^3/uL (134-434); RBC 5.43 M/mm3 (4.00-5.60); RDW 13.5 % (11.9-15.9); WHITE BLOOD COUNT 4.8 K/mm3 (4.0-10.0)
== END 2023-05-14 13:36 | disposition short-term general hospital (02) ==
LOC: JER 11:47
PROC: 3E033GC Introduction of Other Therapeutic Substance into Peripheral Vein, Percutaneous Approach (ICD-10-PCS; principal; 2023-05-14)
PROC: 3E033GC Introduction of Other Therapeutic Substance into Peripheral Vein, Percutaneous Approach (ICD-10-PCS; 2023-05-14)
PROC: 3E033GC Introduction of Other Therapeutic Substance into Peripheral Vein, Percutaneous Approach (ICD-10-PCS; 2023-05-14)
DX: R07.9 Chest pain, unspecified (principal); R51.9 Headache, unspecified; I21.3 ST elevation (STEMI) myocardial infarction of unspecified site
CPT/HCPCS: 36415; 71045-TC-FY; 71275-TC; 74174-TC; 80053; 82962; 83690; 84484; 85025; 85610; 85730; 86850; 86900; 86901; 93005; 93010; 99285-25; J1644; Q9967

== ENCOUNTER 2024-01-25 16:06 | Emergency (ER) | payer OTHER ==
[2024-01-25 16:16] VITALS: BP 125/87; PULSE 81; RESP 20; TEMP 97.6; BMI 28.1
[2024-01-25] MEDS ORDERED: ACETAMINOPHEN INJECTION 100 ML ONE (17:06)
[2024-01-25] MEDS: ACETAMINOPHEN 1000 MG/100 ML BAG IVPB ONE (17:41)
[2024-01-25 17:50] LABS: BASO % 0.7 % (0-2.0); EOS % 2.1 % (0-4.5); HEMATOCRIT 46.8 % (35.4-49); HEMOGLOBIN 16.5 GM/dL (11.7-16.9); LYMPH % 21.6 % (8-40); MCH 30.3 pg (25.7-33.7); MCHC 35.2 g/dl (32.0-35.9); MEAN PLT VOLUME 7.9 fl (7.5-11.1); NEUT % 67.6 % (42.8-82.8); PLATELET COUNT 202 10^3/uL (134-434); RBC 5.44 M/mm3 (4.00-5.60); RDW 12.4 % (11.9-15.9)
[2024-01-25 18:16] LABS: CALCIUM 9.4 mg/dL (8.5-10.1)
[2024-01-25 18:17] LABS: ALBUMIN 3.8 g/dl (3.4-5.0); BLOOD UREA NITROGEN 15.5 mg/dL (7-18)
[2024-01-25 18:20] LABS: CREATININE 0.7 mg/dL (0.55-1.3)
[2024-01-25 18:21] LABS: BILIRUBIN,TOTAL 0.9 mg/dL (0.2-1); TOT PROT 6.8 g/dl (6.4-8.2)
[2024-01-25] MEDS ORDERED: KETOROLAC TROMETHAMINE 15 MG/ML VIAL ONE (18:57)
[2024-01-25] MEDS: KETOROLAC TROMETHAMINE 15 MG/ML VIAL IVPUSH ONE (19:03)
== END 2024-01-25 21:01 | disposition home or self-care (01) ==
LOC: JER 16:06
PROC: 3E033NZ Introduction of Analgesics, Hypnotics, Sedatives into Peripheral Vein, Percutaneous Approach (ICD-10-PCS; principal; 2024-01-25)
PROC: 3E0333Z Introduction of Anti-inflammatory into Peripheral Vein, Percutaneous Approach (ICD-10-PCS; 2024-01-25)
DX: M79.622 Pain in left upper arm (principal); M79.661 Pain in right lower leg; R07.89 Other chest pain; W17.89XA Other fall from one level to another, initial encounter; Y99.0 Civilian activity done for income or pay
CPT/HCPCS: 36415; 70450-TC; 71046-TC-FY; 72125-TC; 72128-TC; 72131-TC; 73030-TC-LT-FY; 73562-TC-RT-FY; 80053; 85025; 99285-25; J0131